=== PATIENT | female | born 1950 | race Caucasian/White ===

== ENCOUNTER → 2021-12-09 12:33 | Outpatient (CLI) | payer MEDICARE, SELFPAY ==
--- NOTE | 2021-12-09 12:38 | DI.MRI.S_ITS ---
PROCEDURE: MR LUMBAR SPINE WO CON INDICATIONS: LUMBAR RADICULOPATHY TECHNIQUE: Noncontrast sagittal T1 spin echo and T2 fast echo, sagittal STIR, and T2 fast spin echo through the lumbar spine. In cases with scoliosis, additional coronal T2 fast spin echo may be performed. COMPARISON: [facility] [place], CR, XR LUMBAR SPINE WITH OBLIQUES PLUS FLEXION EXTENSION, 11/21/2021, 13:10. FINDINGS: Image quality: Prominent motion artifact is present Alignment and Curvature: There is S shaped scoliotic curvature with rightward curvature in the lumbar spine with apex at L3. Bone Marrow: Marrow is of normal overall signal. Mild reactive endplate changes are present at L2-3, L3-4, L4-5, L5-S1 moderate L1-2. No acute vertebral body compression fractures. Spinal Cord: Conus medullaris terminates at the L1 level. Visualized cord demonstrates normal signal and size. Paraspinous Soft Tissues: No paravertebral masses. Discs: Severe desiccation is present throughout the lumbar spine. T12-L1: Mild disc bulge with slight appearance of canal narrowing. Foramina are poorly visualized. However, there is felt to be likely snju-lo-aljmiect right foraminal narrowing. L1-L2: Mild disc bulge with minimal to mild spinal stenosis. Foramina are poorly visualized. However, there is likely mild to moderate bilateral foraminal narrowing. L2-L3: Mild disc bulge with tyxo-jl-wwfitpor spinal stenosis. Severe left foraminal narrowing with nerve root compression of the exiting left L2 nerve roots. Facet and ligamentum flavum hypertrophy are present. L3-L4: Mild disc bulge with moderate spinal stenosis. Severe left foraminal narrowing with compression of the exiting left L3 nerve root. Facet and ligamentum flavum hypertrophy are present. L4-L5: Prominent motion is present at this level. Mild disc bulge with moderate spinal stenosis. Severe right foraminal narrowing with compression of the exiting right L4 nerve roots. Npzs-yl-xrcyebut left foraminal narrowing. L5-S1: Mild disc bulge with mild spinal stenosis. Severe bilateral foraminal narrowing with compression of the exiting nerve roots bilaterally, right greater than left. IMPRESSION: Multilevel disc bulges. Scoliotic curvature. Multilevel severe foraminal narrowing most notable at L5-S1 with compression of bilateral exiting L5 nerve root secondary to facet and ligamentum flavum arthropathy as well as scoliotic curvature. Multilevel spinal stenosis most severe at L3-4, L4-5 secondary to disc bulge with contributing effect of scoliotic curvature. Dictated by: Adri Lira M.D. on 12/09/2021 at 17:34 Approved by: Adri Lira M.D. on 12/09/2021 at 17:38
== END ==
PROVIDERS: PCP Internal Medicine; Referring Provider Physical Medicine & Rehabilitation; Visit Provider Physical Medicine & Rehabilitation
DX: M47.816 Spondylosis without myelopathy or radiculopathy, lumbar region (principal); M51.26 Other intervertebral disc displacement, lumbar region; M51.27 Other intervertebral disc displacement, lumbosacral region; M48.07 Spinal stenosis, lumbosacral region; M48.061 Spinal stenosis, lumbar region without neurogenic claudication; M41.86 Other forms of scoliosis, lumbar region
CPT/HCPCS: 72148

== ENCOUNTER → 2022-01-06 16:13 | Outpatient (CLI) | payer MEDICARE, SELFPAY ==
--- NOTE | 2022-01-06 16:15 | DI.MRI.S_ITS ---
PROCEDURE: MR CERVICAL SPINE WO CON INDICATIONS: Spinal stenosis, cervical region TECHNIQUE: Noncontrast sagittal T1 spin echo and T2 fast spin echo, sagittal STIR, foraminal oblique sagittal T2 fast spin echo, and axial gradient echo or T2 fast spin echo through the cervical spine. COMPARISON: None. FINDINGS: Image quality: Partially degraded by metallic artifact. Alignment and Curvature: There is loss of normal cervical lordosis. There is roughly 3 mm of retrolisthesis of C6 on C7. 3 mm of anterolisthesis of C7 on T1. 3 mm of anterolisthesis of T2 on T3. Bone Marrow: There is erosion of the odontoid process of C2 with surrounding intermediate T1 and low T2 signal intensity, which protrudes into the anterior epidural space in the premedullary cistern, measuring roughly 15 mm anteroposterior. There is moderate reactive signal within the endplates adjacent to the C6-C7 intervertebral disc. Mild reactive signal adjacent to the remaining cervical and thoracic intervertebral discs. Posterior fusion hardware at C3-C6 is present. Spinal Cord: Visualized spinal cord has normal size and signal. No cerebellar tonsillar herniation. There are small T2 intensity foci within the central goran. Paraspinous Soft Tissues: No paravertebral masses. Prevertebral soft tissues are normal in thickness. C1-C2: Low T2 intensity material surrounding the odontoid process of C2 is present, protruding into the anterior epidural space. Mild canal stenosis. Minimal anterior cord flattening. C2-C3: Moderate disc desiccation and diffuse disc bulge. Mild disc height loss. Moderate canal stenosis. Moderate bilateral foraminal stenosis. C3-C4: Severe disc height loss and desiccation. Mild diffuse disc bulge. Mild facet and uncovertebral hypertrophy bilaterally. Mild canal stenosis. Moderate bilateral foraminal stenosis. C4-C5: Severe disc height loss and desiccation. Mild diffuse disc bulge/osteophyte. Mild canal stenosis. Moderate bilateral foraminal stenosis. C5-C6: Severe disc height loss and desiccation. Mild diffuse disc bulge. Moderate facet and uncovertebral hypertrophy bilaterally. Mild canal stenosis. Moderate bilateral foraminal stenosis. C6-C7: Severe disc height loss and desiccation. Moderate diffuse disc bulge with superimposed left paracentral protrusion. Moderate facet and uncovertebral hypertrophy bilaterally. Severe canal stenosis. Mild cord flattening. Severe left and moderate right foraminal stenosis. Left C7 nerve root compression. C7-T1: Moderate disc height loss and desiccation. Moderate diffuse disc bulge. Moderate facet and uncovertebral hypertrophy bilaterally. Moderate canal stenosis. Severe left and moderate to severe right foraminal stenosis. Left greater than right T1 nerve root compression. IMPRESSION: 1. Erosion of the odontoid process of C2 with surrounding pannus formation, contributing to canal stenosis and cord flattening at the C1-C2 level. Differential considerations include rheumatoid arthritis and CPPD arthropathy. 2. Postsurgical sequelae. 3. Multilevel degenerative disc and facet disease, as well as uncovertebral hypertrophy. 4. Multilevel canal stenoses, worst at C1-C2 and C6-C7 where there is mild cord flattening. 5. Multilevel foraminal stenoses, worst at C6-C7 where there is associated intraforaminal nerve root compression. Recommend correlation with clinical symptoms to ascertain relevance of this finding. 6. Small high T2 intensity foci within the central goran. Initial further assessment with brain MRI with and without intravenous contrast is recommended. Dictated by: Manuel Hackett M.D. on 01/07/2022 at 9:26 Approved by: Manuel Hackett M.D. on 01/07/2022 at 9:33
== END ==
PROVIDERS: PCP Internal Medicine; Referring Provider Physical Medicine & Rehabilitation; Visit Provider Physical Medicine & Rehabilitation
DX: M48.02 Spinal stenosis, cervical region (principal); M50.31 Other cervical disc degeneration, high cervical region; M47.892 Other spondylosis, cervical region; Z98.890 Other specified postprocedural states
CPT/HCPCS: 72141

== ENCOUNTER → 2022-01-16 09:56 | Outpatient (CLI) | payer MEDICARE, SELFPAY ==
[2022-01-16 11:02] LABS: BUN Creatinine Ratio 26.4 (6-22); Blood Urea Nitrogen 28 mg/dL (7-17); Estimated Glomerular Filt Rate 56 mL/min (>60)
== END ==
PROVIDERS: PCP Internal Medicine; Referring Provider Physical Medicine & Rehabilitation; Visit Provider Physical Medicine & Rehabilitation
DX: G37.2 Central pontine myelinolysis (principal)
CPT/HCPCS: 36415; 82565; 84520

== ENCOUNTER → 2022-01-17 13:12 | Outpatient (CLI) | payer MEDICARE, SELFPAY ==
--- NOTE | 2022-01-17 | DI.MRI.S_ITS ---
PROCEDURE: MR HEAD/BRAIN WO/W CON INDICATIONS: Pontine lesion TECHNIQUE: Noncontrast axial T1 spin echo, axial T2 fast spin echo, sagittal and axial FLAIR, coronal T2 fast spin echo, axial gradient echo, axial diffusion and ADC through the brain. After the administration of contrast, axial and coronal and sagittal T1 spin echo with fat saturation through the brain. COMPARISON: [facility], MR, MR CERVICAL SPINE WO CON, 01/06/2022, 16:28. FINDINGS: Image quality: Excellent. CSF spaces: Basal cisterns are patent. No extra-axial fluid collections. Ventricles are normal in size and shape. Brain: In this patient with this given history, scrutiny is given to the goran at the site of the previously seen abnormality. Just to the right of the midline, there is a T2 hyperintense focus seen, as on series 9, image 16 that measures up to 4 mm. No enhancement can be seen at this site. No midline shift. No intracranial bleeds or masses. No abnormal intracranial enhancement. There is cerebral volume loss for age. There is periventricular white matter chronic small vessel ischemic change. Diffusion-weighted images demonstrate no acute ischemic insults. No chronic ischemic insults. Normal intravascular flow voids are present. Skull and face: Calvarial marrow is normal in signal. Orbits appear normal. Note is made of bilateral lens replacements. Sinuses: Sinuses and mastoids appear clear. IMPRESSION: 4 mm T2 hyperintense focus without enhancement seen within the goran just to the right of the midline. Although nonspecific, this is felt most likely be related to a remote focal infarction. No further workup is recommended, although attention should be paid to this focus on any future follow-up studies. Dictated by: Sanjiv Hung M.D. on 01/17/2022 at 13:11 Approved by: Sanjiv Hung M.D. on 01/17/2022 at 13:13
== END ==
PROVIDERS: PCP Internal Medicine; Referring Provider Orthopaedic Surgery; Visit Provider Physical Medicine & Rehabilitation
DX: G93.9 Disorder of brain, unspecified
CPT/HCPCS: 70553

== ENCOUNTER → 2023-02-28 | Outpatient (CLI) | payer OTHER, SELFPAY ==
--- NOTE | 2023-02-28 | DI.MG.S_ITS ---
BILATERAL DIGITAL SCREENING MAMMOGRAM 3D/2D WITH CAD: 02/28/2023 CLINICAL: Routine screening. Comparisons: 04/11/2020, 02/11/2018 Both breasts are heterogeneously dense, which may obscure small masses (category c / 51-75% glandular tissue). Current study was also evaluated with a Computer Aided Detection (CAD) system. No significant masses, calcifications, or other findings are seen in either breast. IMPRESSION: NEGATIVE There is no mammographic evidence of malignancy. A 1 year screening mammogram is recommended. Based on the Tyrer Cuzick model (a risk assessment model) the patient's lifetime risk is 4.8% and her 10 year risk is 3.6%. According to the ACR, ACS, and NCCN guidelines, an annual breast MRI exam along with mammogram is recommended if the patient's lifetime risk is 20% or greater. This exam was interpreted at Station ID: [id number]. NOTE: For mammograms, a report in lay terms will be sent to the patient. Approximately 15% of breast malignancies will not be visualized mammographically. In the management of a palpable breast mass, a negative mammogram must not discourage biopsy of a clinically suspicious lesion. Electronically Signed By: Javier Mcintyre M.D. lc/:03/05/2023 07:49:18 letter sent: Normal Exam ACR BI-RADS Category 1: Negative [id number]
== END ==
LOC: MAMMO 13:05
PROVIDERS: PCP Internal Medicine; Referring Provider Internal Medicine; Visit Provider Internal Medicine
DX: Z12.31 Encounter for screening mammogram for malignant neoplasm of breast (principal)
CPT/HCPCS: 77063; 77067

== ENCOUNTER → 2023-09-10 13:12 | Outpatient (CLI) | payer MEDICARE, SELFPAY ==
--- NOTE | 2023-09-10 13:13 | DI.CT.S_ITS ---
PROCEDURE: CT LUNG LOW DOSE SCREENING INDICATIONS: LUNG SCREENING TECHNIQUE: Noncontrast 2.0-2.5 mm thick sections acquired from the pulmonary apices to the posterior costophrenic angles. 7 mm thick axial MIP, and 5 mm coronal and sagittal reformats were then acquired. For radiation dose reduction, the following was used: automated exposure control, adjustment of mA and/or kV according to patient size. COMPARISON: [facility], CT, CT LOW DOSE LUNG CA SCREENING, 04/16/2022, 11:38. FINDINGS: Image quality: Diagnostic Lungs: Scattered calcified granuloma. Additional multiple sub 5 mm pulmonary nodule, grossly unchanged from prior exam. No pleural effusion or pneumothorax. No pulmonary edema or consolidation. Soft tissue/mediastinum: Mild calcification of the thoracic aorta. No thoracic aortic aneurysm. Enlarged main pulmonary artery, which can be seen the setting of pulmonary arterial hypertension. Heart is normal in size. No pericardial effusion. Moderate three-vessel coronary artery calcification. No mediastinal, hilar, or axillary lymphadenopathy. Upper abdomen: Multiple punctate right renal stone. Bones: Chondrocalcinosis of bilateral glenohumeral joint, representing CPPD arthropathy. Dextroscoliosis of the thoracic spine and levoscoliosis at the thoracolumbar junction. Moderate, multilevel degenerative disease of the thoracic spine. IMPRESSION: Calcified granulomas. Stable sub 5 mm pulmonary nodules. LUNG-RADS 2; continued annual screening, if eligible. Dictated by: Valentina Cintron M.D. on 09/10/2023 at 23:20 Approved by: Valentina Cintron M.D. on 09/10/2023 at 23:29
== END ==
PROVIDERS: PCP Internal Medicine; Referring Provider Internal Medicine; Visit Provider Internal Medicine
DX: Z12.2 Encounter for screening for malignant neoplasm of respiratory organs; R91.8 Other nonspecific abnormal finding of lung field; F17.210 Nicotine dependence, cigarettes, uncomplicated
CPT/HCPCS: 71271

== ENCOUNTER → 2024-04-28 14:13 | Outpatient (CLI) | payer MEDICARE, SELFPAY ==
--- NOTE | 2024-04-28 14:15 | DI.MG.S_ITS ---
BILATERAL DIGITAL SCREENING MAMMOGRAM 3D/2D WITH CAD: 04/28/2024 CLINICAL: Routine screening. Comparison is made to exam dated: 02/28/2023 [facility]. 04/11/2020, 02/11/2018 The breasts are heterogeneously dense, which may obscure small masses (category c / 51-75% glandular tissue). Current study was also evaluated with a Computer Aided Detection (CAD) system. No significant masses, calcifications, or other findings are seen in either breast. There has been no significant interval change. IMPRESSION: NEGATIVE There is no mammographic evidence of malignancy. A 1 year screening mammogram is recommended. Based on the Tyrer Cuzick model (a risk assessment model) the patient's lifetime risk is 4.2% and her 10 year risk is 3.8%. According to the ACR, ACS, and NCCN guidelines, an annual breast MRI exam along with mammogram is recommended if the patient's lifetime risk is 20% or greater. This exam was interpreted at Station ID: [id number]. NOTE: For mammograms, a report in lay terms will be sent to the patient. Approximately 15% of breast malignancies will not be visualized mammographically. In the management of a palpable breast mass, a negative mammogram must not discourage biopsy of a clinically suspicious lesion. Electronically Signed By: Jean Paul Valenzuela M.D. aty/:04/29/2024 06:49:49 letter sent: Normal Exam ACR BI-RADS Category 1: Negative
--- NOTE | 2024-04-28 14:15 | DI.RAD.S_ITS ---
PROCEDURE: XR DEXA AXIAL SKELETON INDICATIONS: SCREENING COMPARISON: None. FINDINGS: Lumbar Spine: Bone mineral density 1.290 g/cm2, T score 2.2, normal. Left Hip: Bone mineral density 0.663 g/cm2, T score -2.3, osteopenia. Left Femoral Neck: Bone mineral density 0.675 g/cm2, T score -1.6, osteopenia. Fracture Risk Calculation (when applicable): 10-year fracture risk of a major osteoporotic fracture 11 percent and of a hip fracture 3.4 percent. (T score greater or equal to -1.0 to: NORMAL) (T score from -1.1 to -2.4: OSTEOPENIA) (T score less than or equal to -2.5: OSTEOPOROSIS) IMPRESSION: Osteopenia elevates the patient's 10 year fracture risk as described. Follow-up guidelines as follows: Osteoporosis: Consider a repeat DEXA and Vertebral Fracture Assessment (VFA) exam in 2 years or sooner if medically necessary, to reassess this patient's status. Osteopenia: Consider a repeat DEXA in 2-3 years to reassess this patient's status, or if there is a new clinical indication. Normal: Consider a repeat DEXA in 5 years or sooner, or if there is a new clinical indication. All treatment decisions require clinical judgment and consideration of individual patient factors, including patient preferences, comorbidities, previous drug use, risk factors not captured in the FRAX model (e.g., frailty, falls, vitamin D deficiency, increased bone turnover, interval significant decline in bone density ) and possible under- or over-estimation of fracture risk by FRAX. In addition, the NOF Guide recommends that FDA-approved medical therapies be considered in postmenopausal women and men age >= 50 years with a: * Hip or vertebral (clinical or morphometric) fracture * T-score of <=-2.5 at the spine or hip * Ten-year fracture probability by FRAX of >= 3% for hip fracture or >=20% for major osteoporotic fracture. People with diagnosed cases of osteoporosis or at high risk for fracture should have regular bone mineral density tests. For patients eligible for Medicare, routine testing is allowed once every 2 years. The testing frequency can be increased to one year for patients who have rapidly progressing disease, those who are receiving or discontinuing medical therapy to restore bone mass, or have additional risk factors. Dictated by: Annalisa Martinez M.D. on 04/28/2024 at 21:54 Approved by: Annalisa Martinez M.D. on 04/28/2024 at 21:56
--- NOTE | 2024-04-28 14:16 | DI.US.S_ITS ---
PROCEDURE: US ABD AORTA ANEURYSM SCREEN INDICATIONS: SCREENING TECHNIQUE: Real time scanning was performed of the aorta and iliac arteries, with image documentation. COMPARISON: None. FINDINGS: Aorta: Proximal aortic diameter measures 3 x 2.7 cm. Mid-aorta measures 2 x 2.1 cm. Distal aortic diameter is 1.7 x 1.7 cm. Iliac arteries: Right common iliac artery measures 0.9 cm. Left common iliac artery measures 0.9 cm. IMPRESSION: Minimal proximal aortic aneurysm, 3 cm. By published criteria, ultrasound follow-up in 3 years is recommended. Dictated by: Sanjiv Hung M.D. on 04/29/2024 at 10:50 Approved by: Sanjiv Hung M.D. on 04/29/2024 at 10:53
== END ==
PROVIDERS: PCP Internal Medicine; Referring Provider Internal Medicine; Visit Provider Internal Medicine
DX: Z12.31 Encounter for screening mammogram for malignant neoplasm of breast (principal); M81.0 Age-related osteoporosis without current pathological fracture; R92.333 Mammographic heterogeneous density, bilateral breasts; Z13.6 Encounter for screening for cardiovascular disorders
CPT/HCPCS: 76706; 77063; 77067; 77080

== ENCOUNTER → 2024-10-06 09:35 | Outpatient (CLI) | payer MEDICARE, SELFPAY ==
--- NOTE | 2024-10-06 09:42 | DI.RAD.S_ITS ---
PROCEDURE: XR SHOULDER RT MIN 2V INDICATIONS: Pain in right shoulder TECHNIQUE: 4 views of the shoulder were acquired. COMPARISON: None. FINDINGS: Bones: No fractures or dislocations. The humeral head is high-riding. Moderate to severe glenohumeral joint space narrowing and marginal osteophytosis and moderate to severe hypertrophic acromioclavicular arthropathy and joint space narrowing. No suspicious bony lesions. Visualized ribs appear intact. Soft tissues: No suspicious soft tissue calcifications. IMPRESSION: Degenerative change of the glenohumeral and acromioclavicular joints without evidence of acute bony abnormality. Dictated by: Gomez White M.D. on 10/07/2024 at 1:20 Approved by: Gomez White M.D. on 10/07/2024 at 1:20
== END ==
PROVIDERS: PCP Internal Medicine; Referring Provider Internal Medicine; Visit Provider Internal Medicine
DX: M25.511 Pain in right shoulder (principal)
CPT/HCPCS: 73030

== ENCOUNTER → 2024-11-05 10:47 | Outpatient (CLI) | payer MEDICARE, SELFPAY ==
--- NOTE | 2024-11-05 | DI.CT.S_ITS ---
PROCEDURE: CT LUNG LOW DOSE SCREENING INDICATIONS: SMOKING HISTORY TECHNIQUE: Noncontrast 2.0-2.5 mm thick sections acquired from the pulmonary apices to the posterior costophrenic angles. 7 mm thick axial MIP, and 5 mm coronal and sagittal reformats were then acquired. For radiation dose reduction, the following was used: automated exposure control, adjustment of mA and/or kV according to patient size. COMPARISON: [facility], CT, CT LUNG LOW DOSE SCREENING, 09/10/2023, 13:23. FINDINGS: Image quality: Diagnostic. Lower Neck: No enlarged lymph nodes. Thyroid: No thyroid nodules which require sonographic follow up, per consensus guidelines. Axillae: No enlarged lymph nodes. Chest Wall: Unremarkable. Bones: Unremarkable. Lungs and Pleura: No pneumothorax or pleural effusions. No consolidation or suspicious nodules. Heart: Heart size is normal. No pericardial effusion. Thoracic Vessels: The aorta and pulmonary arteries demonstrate normal size. Mediastinum and [place]: No enlarged lymph nodes. Esophagus: No wall thickening. No hiatal hernia. Upper Abdomen: Visualized upper abdomen solid organs and bowel loops appear normal. IMPRESSION: Stable granulomas with no significant focal lung parenchymal lesion seen. LUNG-RADS 1; continued annual screening, if eligible. Clinically Significant Non-pulmonary Findings: None. Dictated by: Crow Suarez M.D. on 11/05/2024 at 20:56 Approved by: Crow Suarez M.D. on 11/05/2024 at 21:02
== END ==
LOC: CT 10:48
PROVIDERS: PCP Internal Medicine
DX: Z12.2 Encounter for screening for malignant neoplasm of respiratory organs (principal); F17.210 Nicotine dependence, cigarettes, uncomplicated
CPT/HCPCS: 71271